=== PATIENT | female | born 1935 | race Caucasian/White ===

== ENCOUNTER 2016-08-01 21:54 | Inpatient (IN) | payer OTHER ==
[~2016-08-01] VITALS: Ht 157.5 cm; Wt 78.3 kg
[2016-08-01 22:25] LABS: BASOPHILS % (AUTO) 0.3 % (0.0-2.0); EOSINOPHILS % (AUTO) 0.1 % (1.0-6.0); HEMOGLOBIN 13.5 g/dL (12.0-16.0); LYMPHOCYTES # (AUTO) 1.8 K/uL (1.0-4.8); LYMPHOCYTES % (AUTO) 18.8 % (22.0-44.0); MEAN CORPUSCULAR HEMOGLOBIN 27.3 pg (26.0-34.0); MEAN CORPUSCULAR HGB CONC 32.2 G/dL (31.0-37.0); MEAN CORPUSCULAR VOLUME 85 fL (80-100); MONOCYTES # (AUTO) 0.6 K/uL (0.1-1.0); MONOCYTES % (AUTO) 6.3 % (2.0-9.0); NEUTROPHILS # (AUTO) 7.1 K/uL (1.8-7.7); NEUTROPHILS % (AUTO) 74.5 % (40.0-70.0); PLATELET COUNT (AUTO) 273 K/uL (150-450); RED BLOOD CELL COUNT(AUTO) 4.96 MIL/uL (4.00-5.20); RED CELL DISTRIBUTION WIDTH 14.6 % (11.5-14.5); WHITE BLOOD COUNT (AUTO) 9.5 K/uL (4.5-11.0)
[2016-08-01 22:34] LABS: ANION GAP 6 mmol/L (8-16); CALCIUM, TOTAL 10.2 mg/dL (8.8-10.5); CARBON DIOXIDE 25 mmol/L (22-29); CHLORIDE 106 mmol/L (98-107); CREATININE 1.38 mg/dL (0.60-1.30); GLOMERULAR FILTR. RATE CALC 38 mL/min (>60); POTASSIUM 4.5 mmol/L (3.5-5.1); SODIUM SERUM 137 mmol/L (136-145); UREA NITROGEN, BLOOD 33 mg/dL (7-18)
[2016-08-01 22:51] LABS: PROTHROMBIN TIME 10.4 SEC (9.4-11.6)
[2016-08-01 22:54] LABS: B-TYPE NATRIURETIC PEPTIDE 927 pg/mL (0-100)
[2016-08-01 22:58] LABS: APPEARANCE,URINE CLOUDY (CLEAR); GLUCOSE, URINE (UA) NEGATIVE (NEGATIVE); KETONES,URINE NEGATIVE (NEGATIVE); LEUKOCYTE ESTERASE ,URINE SMALL (NEGATIVE); OCCULT BLOOD,URINE SMALL (NEGATIVE); PROTEIN,URINE POS 1+ (NEGATIVE)
[2016-08-01 22:59] LABS: ALANINE AMINOTRANSFERASE 74 U/L (12-78); ALBUMIN 3.7 g/dL (3.4-5.0); ASPARTATE AMINOTRANSFERASE 75 U/L (15-37); BILIRUBIN,TOTAL 0.3 mg/dL (0.1-1.0); CREATINE KINASE MB 0.9 ng/mL (0-5); CREATINE KINASE, TOTAL 86 U/L (26-192); TOTAL PROTEIN, SERUM 7.6 g/dL (6.4-8.2)
[2016-08-01 23:00] LABS: ADD UA MICROSCOPIC YES
[2016-08-01] MEDS ORDERED: DOPamine HCL 200 MG/D5%-WATER 250 ML IV PRN (23:00)
[2016-08-01] MEDS ORDERED: DOPamine HCL 400 MG/D5%-WATER 250 ML IV PRN ×2 (23:03→23:15)
[2016-08-01 23:11] LABS: SQUAMOUS EPITHELIAL CELL,UR Moderate /LPF (None Seen)
[2016-08-01] MEDS ORDERED: ONDANSETRON HCL 4 MG/2 ML VIAL IVP PRN (23:15)
[2016-08-01] MEDS ORDERED: ACETAMINOPHEN 325 MG TABLET PO PRN (23:15)
[2016-08-01] MEDS ORDERED: OxyCODONE HCL/ACETAMINOPHEN 5-325 MG TABLET PO PRN (23:15)
[2016-08-01] MEDS ORDERED: ZOLPIDEM TARTRATE 5 MG TABLET PO PRN (23:15)
[2016-08-01] MEDS: CefTRIAXone 1 GM/DEXTROSE 50 ML IV SCH (23:48)
[2016-08-02] VITALS (9 sets, daily range): BP systolic 101–149; BP diastolic 36–96
[2016-08-02] MEDS: HEPARIN SODIUM,PORCINE 5,000 UNITS/ML VIAL SQ SCH ×3 (00:10→16:00)
[2016-08-02] MEDS ORDERED: PNEUMOCOCCAL VACCINE POLYVALENT 0.5 ML VIAL [PPSV23] IM ONE (05:00)
[2016-08-02 06:54] LABS: THYROID STIMULATING HORMONE 1.19 uIU/mL (0.36-3.74)
[2016-08-02] MEDS ORDERED: DEXTROSE 5%-0.45% SODIUM CHL 1,000 ML IV SCH (07:00)
[2016-08-02 07:35] LABS: BASOPHILS % (AUTO) 0.5 % (0.0-2.0); EOSINOPHILS % (AUTO) 0 % (1.0-6.0); HEMATOCRIT 40.7 % (36-46); HEMOGLOBIN 13.3 g/dL (12.0-16.0); LYMPHOCYTES # (AUTO) 1.5 K/uL (1.0-4.8); LYMPHOCYTES % (AUTO) 9.5 % (22.0-44.0); MEAN CORPUSCULAR HEMOGLOBIN 27.6 pg (26.0-34.0); MEAN CORPUSCULAR HGB CONC 32.7 G/dL (31.0-37.0); MEAN CORPUSCULAR VOLUME 84 fL (80-100); MONOCYTES # (AUTO) 0.9 K/uL (0.1-1.0); MONOCYTES % (AUTO) 5.6 % (2.0-9.0); NEUTROPHILS # (AUTO) 13.1 K/uL (1.8-7.7); NEUTROPHILS % (AUTO) 84.4 % (40.0-70.0); PLATELET COUNT (AUTO) 251 K/uL (150-450); RED BLOOD CELL COUNT(AUTO) 4.83 MIL/uL (4.00-5.20); RED CELL DISTRIBUTION WIDTH 14.8 % (11.5-14.5); WHITE BLOOD COUNT (AUTO) 15.6 K/uL (4.5-11.0)
[2016-08-02 07:41] LABS: CALCIUM, TOTAL 10.5 mg/dL (8.8-10.5); CREATININE 1.63 mg/dL (0.60-1.30); POTASSIUM 4.4 mmol/L (3.5-5.1)
[2016-08-02] MEDS: PANTOPRAZOLE SODIUM 40 MG DR TABLET PO SCH (07:59)
[2016-08-02] MEDS ORDERED: LIDOCAINE HCL/PF 1% 30 ML VIAL ONE (11:57)
[2016-08-02] MEDS ORDERED: SODIUM BICARBONATE 50 MEQ/50 ML VIAL ONE (11:57)
[2016-08-02] MEDS ORDERED: SODIUM CHLORIDE 0.9% 1,000 ML IV ONE (12:00)
[2016-08-02] MEDS ORDERED: MIDAZOLAM HCL 2 MG/2 ML VIAL ONE (12:12)
[2016-08-02] MEDS ORDERED: FentaNYL CITRATE-PF 100 MCG/2 ML VIAL ONE (12:12)
[2016-08-02] MEDS ORDERED: IOHEXOL 300 MG/ML 50 ML VIAL ONE (12:21)
[2016-08-02] MEDS ORDERED: LIDOCAINE 1% 30 ML/SOD BICARB 8.4% 4 ML SQ ONE (12:45)
[2016-08-02] MEDS ORDERED: MIDAZOLAM HCL 2 MG/2 ML VIAL IVP ONE ×2 (12:45→13:15)
[2016-08-02] MEDS ORDERED: FentaNYL CITRATE-PF 100 MCG/2 ML VIAL IVP ONE ×2 (12:45→13:15)
[2016-08-02] MEDS ORDERED: SODIUM CHLORIDE 0.9% 250 ML IV ONE (18:22)
[2016-08-02] MEDS: CeFAZolin 1 GM/DEXTROSE 50 ML IV SCH (18:23)
[2016-08-02] MEDS: CefTRIAXone 1 GM/DEXTROSE 50 ML IV SCH (23:17)
[2016-08-03] VITALS (7 sets, daily range): BP systolic 128–153; BP diastolic 70–91
[2016-08-03] MEDS: CeFAZolin 1 GM/DEXTROSE 50 ML IV SCH ×2 (00:18→05:44)
[2016-08-03 05:42] LABS: BASOPHILS % (AUTO) 0.3 % (0.0-2.0); EOSINOPHILS % (AUTO) 0.1 % (1.0-6.0); HEMATOCRIT 34.8 % (36-46); HEMOGLOBIN 11.4 g/dL (12.0-16.0); LYMPHOCYTES # (AUTO) 1.4 K/uL (1.0-4.8); LYMPHOCYTES % (AUTO) 14.8 % (22.0-44.0); MEAN CORPUSCULAR HEMOGLOBIN 27.6 pg (26.0-34.0); MEAN CORPUSCULAR HGB CONC 32.7 G/dL (31.0-37.0); MEAN CORPUSCULAR VOLUME 84 fL (80-100); MONOCYTES # (AUTO) 0.6 K/uL (0.1-1.0); MONOCYTES % (AUTO) 6.9 % (2.0-9.0); NEUTROPHILS # (AUTO) 7.2 K/uL (1.8-7.7); NEUTROPHILS % (AUTO) 77.9 % (40.0-70.0); PLATELET COUNT (AUTO) 202 K/uL (150-450); RED BLOOD CELL COUNT(AUTO) 4.13 MIL/uL (4.00-5.20); RED CELL DISTRIBUTION WIDTH 14.8 % (11.5-14.5); WHITE BLOOD COUNT (AUTO) 9.3 K/uL (4.5-11.0)
[2016-08-03 05:43] LABS: ALANINE AMINOTRANSFERASE 65 U/L (12-78); ALBUMIN 2.9 g/dL (3.4-5.0); ANION GAP 7 mmol/L (8-16); ASPARTATE AMINOTRANSFERASE 40 U/L (15-37); BILIRUBIN,TOTAL 0.5 mg/dL (0.1-1.0); CALCIUM, TOTAL 9.5 mg/dL (8.8-10.5); CARBON DIOXIDE 26 mmol/L (22-29); CHLORIDE 102 mmol/L (98-107); CREATININE 0.86 mg/dL (0.60-1.30); GLOMERULAR FILTR. RATE CALC > 60 mL/min (>60); POTASSIUM 4.5 mmol/L (3.5-5.1); SODIUM SERUM 135 mmol/L (136-145); TOTAL PROTEIN, SERUM 6.7 g/dL (6.4-8.2); UREA NITROGEN, BLOOD 22 mg/dL (7-18)
[2016-08-03] MEDS: PANTOPRAZOLE SODIUM 40 MG DR TABLET PO SCH (08:57)
[2016-08-03] MEDS: BISACODYL 10 MG RECTAL RECTAL SUPPOSITORY PR PRN (18:09)
[2016-08-04] VITALS: BP 135/80
[2016-08-04] MEDS: CefTRIAXone 1 GM/DEXTROSE 50 ML IV SCH ×2 (00:20→23:45)
[2016-08-04] MEDS ORDERED: SODIUM CHLORIDE 0.9% 250 ML IV ONE (00:24)
[2016-08-04 04:00] VITALS: BP 130/69
[2016-08-04 06:33] LABS: BASOPHILS # (AUTO) 0.03 K/uL (0.00-0.20); BASOPHILS % (AUTO) 0.3 % (0.0-2.0); EOSINOPHILS # (AUTO) 0.04 K/uL (0.00-0.70); EOSINOPHILS % (AUTO) 0.45 % (1.0-6.0); HEMATOCRIT 36.1 % (36-46); LYMPHOCYTES # (AUTO) 1.8 K/uL (1.0-4.8); LYMPHOCYTES % (AUTO) 18.7 % (22.0-44.0); MEAN CORPUSCULAR HEMOGLOBIN 27.8 pg (26.0-34.0); MEAN CORPUSCULAR HGB CONC 33.3 G/dL (31.0-37.0); MEAN CORPUSCULAR VOLUME 84 fL (80-100); MONOCYTES # (AUTO) 0.8 K/uL (0.1-1.0); MONOCYTES % (AUTO) 7.9 % (2.0-9.0); NEUTROPHILS # (AUTO) 6.9 K/uL (1.8-7.7); NEUTROPHILS % (AUTO) 72.7 % (40.0-70.0); PLATELET COUNT (AUTO) 223 K/uL (150-450); RED BLOOD CELL COUNT(AUTO) 4.32 MIL/uL (4.00-5.20); RED CELL DISTRIBUTION WIDTH 15.4 % (11.5-14.5); WHITE BLOOD COUNT (AUTO) 9.5 K/uL (4.5-11.0)
[2016-08-04 06:52] LABS: ANION GAP 5 mmol/L (8-16); CALCIUM, TOTAL 9.9 mg/dL (8.8-10.5); CARBON DIOXIDE 29 mmol/L (22-29); CHLORIDE 103 mmol/L (98-107); CREATININE 0.73 mg/dL (0.60-1.30); GLOMERULAR FILTR. RATE CALC > 60 mL/min (>60); POTASSIUM 4.5 mmol/L (3.5-5.1); SODIUM SERUM 137 mmol/L (136-145); UREA NITROGEN, BLOOD 14 mg/dL (7-18)
[2016-08-04 08:00] VITALS: BP 138/89
[2016-08-04] MEDS: PANTOPRAZOLE SODIUM 40 MG DR TABLET PO SCH (09:02)
[2016-08-04] MEDS: MAGNESIUM HYDROXIDE SUSPENSION 30 ML UDCUP PO PRN (09:57)
[2016-08-04 12:00] VITALS: BP 142/67
[2016-08-04 16:00] VITALS: BP 141/81
[2016-08-04 20:00] VITALS: BP 137/72
[2016-08-05] VITALS: BP 145/59
[2016-08-05 04:00] VITALS: BP 124/61
[2016-08-05] MEDS ORDERED: 0.9% SODIUM CHLORIDE 10 ML SYRINGE IVP PRN (07:00)
[2016-08-05 08:00] VITALS: BP 143/71
[2016-08-05] MEDS: PANTOPRAZOLE SODIUM 40 MG DR TABLET PO SCH (08:27)
[2016-08-05] MEDS: MAGNESIUM HYDROXIDE SUSPENSION 30 ML UDCUP PO PRN (08:27)
[2016-08-05 12:00] VITALS: BP 149/79
[2016-08-05 16:00] VITALS: BP 143/75
[2016-08-05] MEDS ORDERED: ALPRAZolam 0.25 MG TABLET PO PRN (18:30)
[2016-08-05] MEDS ORDERED: ALPRAZolam 0.25 MG TABLET PO ONE (19:00)
[2016-08-05 20:00] VITALS: BP 144/69
[2016-08-06] VITALS (18 sets, daily range): BP systolic 120–179; BP diastolic 66–105
[2016-08-06 05:12] LABS: BASOPHILS # (AUTO) 0.04 K/uL (0.00-0.20); BASOPHILS % (AUTO) 0.4 % (0.0-2.0); EOSINOPHILS # (AUTO) 0.29 K/uL (0.00-0.70); EOSINOPHILS % (AUTO) 2.98 % (1.0-6.0); HEMATOCRIT 42.9 % (36-46); LYMPHOCYTES # (AUTO) 2.1 K/uL (1.0-4.8); LYMPHOCYTES % (AUTO) 21.3 % (22.0-44.0); MEAN CORPUSCULAR HEMOGLOBIN 27.6 pg (26.0-34.0); MEAN CORPUSCULAR HGB CONC 32.7 G/dL (31.0-37.0); MEAN CORPUSCULAR VOLUME 84 fL (80-100); MONOCYTES # (AUTO) 0.8 K/uL (0.1-1.0); MONOCYTES % (AUTO) 7.7 % (2.0-9.0); NEUTROPHILS # (AUTO) 6.6 K/uL (1.8-7.7); NEUTROPHILS % (AUTO) 67.6 % (40.0-70.0); PLATELET COUNT (AUTO) 298 K/uL (150-450); RED BLOOD CELL COUNT(AUTO) 5.09 MIL/uL (4.00-5.20); RED CELL DISTRIBUTION WIDTH 15.3 % (11.5-14.5); WHITE BLOOD COUNT (AUTO) 9.8 K/uL (4.5-11.0)
[2016-08-06 05:14] LABS: PROTHROMBIN TIME 10.6 SEC (9.4-11.6)
[2016-08-06 05:26] LABS: ALANINE AMINOTRANSFERASE 58 U/L (12-78); ALBUMIN 2.8 g/dL (3.4-5.0); ANION GAP 8 mmol/L (8-16); ASPARTATE AMINOTRANSFERASE 36 U/L (15-37); BILIRUBIN,TOTAL 0.4 mg/dL (0.1-1.0); CARBON DIOXIDE 27 mmol/L (22-29); CHLORIDE 101 mmol/L (98-107); CREATININE 0.69 mg/dL (0.60-1.30); GLOMERULAR FILTR. RATE CALC > 60 mL/min (>60); PHOSPHORUS 3.6 mg/dL (2.5-4.9); POTASSIUM 4.6 mmol/L (3.5-5.1); SODIUM SERUM 136 mmol/L (136-145); TOTAL PROTEIN, SERUM 7.7 g/dL (6.4-8.2); UREA NITROGEN, BLOOD 21 mg/dL (7-18)
[2016-08-06] MEDS ORDERED: LIDOCAINE HCL/PF 1% 30 ML VIAL ONE ×2 (07:17→07:44)
[2016-08-06] MEDS ORDERED: SODIUM BICARBONATE 50 MEQ/50 ML VIAL ONE (07:18)
[2016-08-06] MEDS ORDERED: FentaNYL CITRATE-PF 100 MCG/2 ML VIAL ONE (07:59)
[2016-08-06] MEDS ORDERED: MIDAZOLAM HCL 2 MG/2 ML VIAL ONE (08:00)
[2016-08-06] MEDS ORDERED: SODIUM CHLORIDE 0.9% 500 ML IV ONE (08:02)
[2016-08-06] MEDS ORDERED: FentaNYL CITRATE-PF 100 MCG/2 ML VIAL IVP ONE ×2 (08:15)
[2016-08-06] MEDS ORDERED: LIDOCAINE 1% 30 ML/SOD BICARB 8.4% 4 ML SQ ONE (08:15)
[2016-08-06] MEDS ORDERED: MIDAZOLAM HCL 2 MG/2 ML VIAL IVP ONE ×2 (08:15)
[2016-08-06] MEDS: PANTOPRAZOLE SODIUM 40 MG DR TABLET PO SCH (09:51)
[2016-08-06] MEDS: CeFAZolin 1 GM/DEXTROSE 50 ML IV SCH ×2 (14:55→20:29)
[2016-08-06] MEDS ORDERED: SODIUM CHLORIDE 0.9% 100 ML ONE (20:01)
[2016-08-06] MEDS: MAGNESIUM HYDROXIDE SUSPENSION 30 ML UDCUP PO PRN (20:35)
[2016-08-07] MEDS: CeFAZolin 1 GM/DEXTROSE 50 ML IV SCH (02:30)
[2016-08-07 04:38] VITALS: BP 122/81
[2016-08-07 06:48] LABS: BASOPHILS % (AUTO) 0.3 % (0.0-2.0); EOSINOPHILS % (AUTO) 1.8 % (1.0-6.0); HEMATOCRIT 43.3 % (36-46); HEMOGLOBIN 14.4 g/dL (12.0-16.0); LYMPHOCYTES # (AUTO) 2.3 K/uL (1.0-4.8); LYMPHOCYTES % (AUTO) 23.4 % (22.0-44.0); MEAN CORPUSCULAR HEMOGLOBIN 27.8 pg (26.0-34.0); MEAN CORPUSCULAR HGB CONC 33.2 G/dL (31.0-37.0); MEAN CORPUSCULAR VOLUME 84 fL (80-100); MONOCYTES # (AUTO) 0.8 K/uL (0.1-1.0); MONOCYTES % (AUTO) 8.1 % (2.0-9.0); NEUTROPHILS # (AUTO) 6.6 K/uL (1.8-7.7); NEUTROPHILS % (AUTO) 66.4 % (40.0-70.0); PLATELET COUNT (AUTO) 301 K/uL (150-450); RED BLOOD CELL COUNT(AUTO) 5.17 MIL/uL (4.00-5.20); RED CELL DISTRIBUTION WIDTH 14.8 % (11.5-14.5); WHITE BLOOD COUNT (AUTO) 9.9 K/uL (4.5-11.0)
[2016-08-07 06:53] LABS: ANION GAP 5 mmol/L (8-16); CALCIUM, TOTAL 9.6 mg/dL (8.8-10.5); CARBON DIOXIDE 28 mmol/L (22-29); CHLORIDE 101 mmol/L (98-107); GLOMERULAR FILTR. RATE CALC > 60 mL/min (>60); POTASSIUM 4.6 mmol/L (3.5-5.1); SODIUM SERUM 134 mmol/L (136-145); UREA NITROGEN, BLOOD 21 mg/dL (7-18)
[2016-08-07 07:44] VITALS: BP 132/69
[2016-08-07] MEDS: PANTOPRAZOLE SODIUM 40 MG DR TABLET PO SCH (10:42)
[2016-08-07 11:22] VITALS: BP 132/74
[2016-08-07] MEDS: BISACODYL 10 MG RECTAL RECTAL SUPPOSITORY PR PRN (12:39)
[2016-08-07 14:31] LABS: GLUCOSE,POINT OF CARE 136 MG/DL (70-110)
[2016-08-07 16:03] VITALS: BP 128/66
[2016-08-07 20:06] VITALS: BP 127/77
[2016-08-08 00:03] VITALS: BP 125/75
[2016-08-08 04:28] VITALS: BP 147/81
[2016-08-08 07:30] VITALS: BP 134/90
[2016-08-08] MEDS: PANTOPRAZOLE SODIUM 40 MG DR TABLET PO SCH (10:37)
[2016-08-08] MEDS: OXYGEN THERAPY IH SCH ×2 (10:37→20:55)
[2016-08-08 11:01] VITALS: BP 128/86
[2016-08-08 15:49] VITALS: BP 108/43
[2016-08-08 19:37] VITALS: BP 124/78
[2016-08-09 00:03] VITALS: BP 123/67
[2016-08-09 05:02] VITALS: BP 118/78
[2016-08-09] MEDS: OXYGEN THERAPY IH SCH (08:00)
[2016-08-09] MEDS: MAGNESIUM HYDROXIDE SUSPENSION 30 ML UDCUP PO PRN (09:16)
[2016-08-09] MEDS: PANTOPRAZOLE SODIUM 40 MG DR TABLET PO SCH (09:16)
[2016-08-09 11:01] VITALS: BP 131/89
[2016-08-09 14:53] VITALS: BP 118/73
== END 2016-08-09 19:00 | disposition home or self-care (01) | DRG 242 ==
LOC: EMS 21:59 → EDBD 21:59 → ICU 08-02 01:15 → 5N 08-03 14:45 → ICU 08-03 20:30 → 5N 08-06 18:20 → 5S 08-09 18:23
PROVIDERS: ADMIT Hospitalist; ATTEND Hospitalist
PROC: 0JH606Z Insertion of Pacemaker, Dual Chamber into Chest Subcutaneous Tissue and Fascia, Open Approach (ICD-10-PCS; principal; 2016-08-02)
PROC: 02H63JZ Insertion of Pacemaker Lead into Right Atrium, Percutaneous Approach (ICD-10-PCS; 2016-08-02)
PROC: 02HK3JZ Insertion of Pacemaker Lead into Right Ventricle, Percutaneous Approach (ICD-10-PCS; 2016-08-02)
PROC: 02WA0MZ Revision of Cardiac Lead in Heart, Open Approach (ICD-10-PCS; 2016-08-06)
PROC: 5A1223Z Performance of Cardiac Pacing, Continuous (ICD-10-PCS; 2016-08-06)
DX: I44.2 Atrioventricular block, complete (principal); I50.31 Acute diastolic (congestive) heart failure; N39.0 Urinary tract infection, site not specified; N17.9 Acute kidney failure, unspecified; T82.120A Displacement of cardiac electrode, initial encounter; T82.110A Breakdown (mechanical) of cardiac electrode, initial encounter; E44.0 Moderate protein-calorie malnutrition; I49.5 Sick sinus syndrome; F32.9 Major depressive disorder, single episode, unspecified; R00.1 Bradycardia, unspecified; I11.0 Hypertensive heart disease with heart failure; Y83.8 Other surgical procedures as the cause of abnormal reaction of the patient, or of later complication, without mention of misadventure at the time of the procedure; Y92.238 Other place in hospital as the place of occurrence of the external cause; X58.XXXA Exposure to other specified factors, initial encounter; Y93.89 Activity, other specified; Z90.49 Acquired absence of other specified parts of digestive tract; Z98.890 Other specified postprocedural states; Z86.73 Personal history of transient ischemic attack (TIA), and cerebral infarction without residual deficits; Y99.8 Other external cause status; Z68.31 Body mass index [BMI] 31.0-31.9, adult
CPT/HCPCS: 33208; 33210; 33215; 33216; 71020; 76000; 82962; 83735; 84100; 84443; 87081; 87086; 90471; 93005; 93306; 93308; 96365; 96366; 97110; 97116; 97163; 97530; 99291; J0690; J0696; J1265; J1644; J2250; J2405; J3010; J3490; J7030; J7050; Q9967

== ENCOUNTER 2022-04-03 16:14 | Emergency (ER) | payer OTHER ==
[~2022-04-03] VITALS: Ht 162.6 cm; Wt 68.2 kg
[2022-04-03] MEDS ORDERED: TELM20 PO (16:45)
[2022-04-03] MEDS ORDERED: POLY17PO47 PO (16:45)
[2022-04-03] MEDS ORDERED: DIOS630T PO (16:45)
[2022-04-03] MEDS ORDERED: AMIO200T68 PO (16:45)
[2022-04-03] MEDS ORDERED: SERT-158 PO (16:45)
[2022-04-03] MEDS ORDERED: QUET100T PO (16:45)
[2022-04-03] MEDS ORDERED: METO-416 PO (16:45)
[2022-04-03 17:52] LABS: BASOPHILS % (AUTO) 0.5 % (0.0-2.0); EOSINOPHILS % (AUTO) 0.6 % (1.0-6.0); HEMATOCRIT 42.4 % (36-46); HEMOGLOBIN 13.9 g/dL (12.0-16.0); LYMPHOCYTES # (AUTO) 2.2 K/uL (1.0-4.8); LYMPHOCYTES % (AUTO) 31.7 % (22.0-44.0); MEAN CORPUSCULAR HEMOGLOBIN 28.2 pg (26.0-34.0); MEAN CORPUSCULAR HGB CONC 32.7 G/dL (31.0-37.0); MEAN CORPUSCULAR VOLUME 86 fL (80-100); MONOCYTES # (AUTO) 0.5 K/uL (0.1-1.0); MONOCYTES % (AUTO) 7.4 % (2.0-9.0); NEUTROPHILS # (AUTO) 4.1 K/uL (1.8-7.7); NEUTROPHILS % (AUTO) 59.8 % (40.0-70.0); PLATELET COUNT (AUTO) 261 K/uL (150-450); RED BLOOD CELL COUNT(AUTO) 4.92 MIL/uL (4.00-5.20); RED CELL DISTRIBUTION WIDTH 15.3 % (11.5-14.5)
[2022-04-03 18:02] LABS: CALCIUM, TOTAL 9.8 mg/dL (8.8-10.5); CREATININE 0.98 mg/dL (0.60-1.30); POTASSIUM 4.6 mmol/L (3.5-5.1)
[2022-04-03 18:09] LABS: ALBUMIN 4.1 g/dL (3.4-5.0); BILIRUBIN,TOTAL 0.8 mg/dL (0.1-1.0); TOTAL PROTEIN, SERUM 8.2 g/dL (6.4-8.2)
[2022-04-03 20:18] LABS: APPEARANCE,URINE HAZY (CLEAR); BILIRUBIN,URINE NEGATIVE (NEGATIVE); GLUCOSE, URINE (UA) NEGATIVE (NEGATIVE); KETONES,URINE NEGATIVE (NEGATIVE); LEUKOCYTE ESTERASE ,URINE LARGE (NEGATIVE); NITRATE,URINE POSITIVE (NEGATIVE); OCCULT BLOOD,URINE NEGATIVE (NEGATIVE); PROTEIN,URINE NEGATIVE (NEGATIVE); SPECIFIC GRAVITIY, URINE 1.007 (1.003-1.030); UROBILINOGEN,URINE <=1.0 mg/dL (<=1.0)
[2022-04-03 20:30] LABS: BACTERIA,URINE Many /HPF (None Seen); RBC,URINE None Seen /HPF (0-2); SQUAMOUS EPITHELIAL CELL,UR Few /LPF (None Seen)
[2022-04-03] MEDS ORDERED: SODIUM CHLORIDE 0.9% 500 ML IV ONE (20:45)
[2022-04-03 21:43] VITALS: BP 150/74
[2022-04-03] MEDS ORDERED: CEPHALEXIN MONOHYDRATE 500 MG CAPSULE PO ONE (23:45)
== END 2022-04-04 00:27 | disposition left against medical advice (07) ==
LOC: EMS 16:14
DX: I71.4 Abdominal aortic aneurysm, without rupture (principal); R10.13 Epigastric pain; N39.0 Urinary tract infection, site not specified; I82.409 Acute embolism and thrombosis of unspecified deep veins of unspecified lower extremity; F32.A Depression, unspecified; I10 Essential (primary) hypertension; Z86.73 Personal history of transient ischemic attack (TIA), and cerebral infarction without residual deficits; Z90.49 Acquired absence of other specified parts of digestive tract; Z98.890 Other specified postprocedural states; Z91.011 Allergy to milk products
CPT/HCPCS: 99285; 74176; 96360; 80053; 81001; 83690; 84484; 85025; 87086; 87186; 74022; 93005; 36415; J7040